=== PATIENT | male | born 1990 | race Caucasian/White ===

== ENCOUNTER 2021-11-14 20:46 | Emergency (ER) | payer MEDICAID, OTHER ==
[~2021-11-14] VITALS: Ht 165.1 cm; Wt 73.0 kg
[2021-11-15] MEDS ORDERED: FLUORESCEIN SODIUM 1MG/STRIP BOTHEYE ONE (00:30)
[2021-11-15] MEDS ORDERED: TETRACAINE 0.5% OPHTH DROPS 4ML BOTHEYE ONE (00:30)
[2021-11-15] MEDS ORDERED: HYDROCODONE/ACETAMINOPHEN 5/325MG TABLET PO ONE (00:30)
[2021-11-15] MEDS ORDERED: MORPHINE SULFATE 4 MG/ML CPJ (NOT FOR IM USE) IV ONE (04:45)
[2021-11-15] MEDS ORDERED: OXYCODONE HCL/ACETAMINOPHEN 5/325MG TABLET PO ONE (08:45)
[2021-11-15] MEDS ORDERED: HYDROCODONE/ACETAMINOPHEN 5/325MG TABLET PO STA (13:03)
[2021-11-15 15:06] VITALS: BP 101/70
== END 2021-11-15 15:15 | disposition short-term general hospital (02) ==
LOC: EDBD 20:46 → ER 20:46
DX: H05.231 Hemorrhage of right orbit (principal); H11.31 Conjunctival hemorrhage, right eye
CPT/HCPCS: 70450; 70486; 96374; 99291; J2270